=== PATIENT | male | born 1940 | race Caucasian/White ===

== ENCOUNTER 2017-06-08 21:42 | Emergency (ER) | payer OTHER ==
[2017-06-08 22:04] VITALS: RESP 16
--- NOTE | 2017-06-08 22:05 | EDPHY ---
H & P Stated Complaint: eye bleeding HPI/ROS: HPI CHIEF COMPLAINT: Left eye redness, anxiety HISTORY OF PRESENT ILLNESS: This patient very pleasant 77-year-old male, significant past medical history for hypertension ulcerative colitis. He presents emergency room stating that his relatives flew to the [place] in the been staying with him they noticed his eye was red 2 days ago. He did not have any symptoms. He became concerned that his eye was red and states that it was worse today. He denies any eye pain or visual disturbance. He states he became very anxious as he has to go on a long road trip and he is concerned that his left eye being red is going to interfere with his trip. Denies headache, chest pain, shortness of breath, fever. Denies eye pain. Denies vision double vision or blurry vision. Past Medical History: Hypertension, also colitis Past Surgical History: Denies recent surgery Social History: Denies daily use of drugs alcohol tobacco products. Family History: Noncontributory ROS REVIEW OF SYSTEMS: A comprehensive 10 point review of systems is otherwise negative aside from elements mentioned in the history of present illness. Exam Constitutional triage nursing summary reviewed, vital signs reviewed, awake/ alert. Eyes normal conjunctivae and sclera, EOMI, PERRLA. Right eye normal. Left eye on the medial aspect of the left eye at the 7 to 9:00 O'Clock position there is subconjunctival hemorrhage present. There is some yellow hue indicating that the blood is starting to break down. Globes are soft. Extraocular movement intact. No proptosis. Pupil equal round react to light. Posterior eye exam without dilatation is unremarkable. No hyphema. Visual acuity is been reviewed. Isrrael-Pen pressures have been performed. Fluorescein was used. No uptake. Isrrael-Pen pressure show 13, 13, 14. HENT normal inspection, atraumatic, moist mucus membranes, no epistaxis, neck supple/ no meningismus, no raccoon eyes. Respiratory clear to auscultation bilaterally, normal breath sounds, no respiratory distress, no wheezing. Cardiovascular rate normal, regular rhythm, no murmur, no edema, distal pulses normal. Gastrointestinal soft, non-tender, no rebound, no guarding, normal bowel sounds, no distension, no pulsatile mass. Genitourinary no CVA tenderness. Musculoskeletal no midline vertebral tenderness, full range of motion, no calf swelling, no tenderness of extremities, no meningismus, good pulses, neurovascularly intact. Skin pink, warm, & dry, no rash, skin atraumatic. Neurologic awake, alert and oriented x 3, AAOx3, moves all 4 extremities equally, motor intact, sensory intact, CN II-XII intact, normal cerebellar, normal vision, normal speech. Psychiatric normal mood/affect. Heme/Lymph/Immune no lymphadenopathy. Differential Diagnosis: Includes but is not limited to in a particular order left eye subconjunctival hemorrhage, hyphema, traumatic iritis, acute angle closure glaucoma Medical Decision Making: Plan for this patient visual acuity, Isrrael-Pen for pressures, fluorescein. Proparacaine. Re-evaluate. Re-evaluation: 2308: Re-evaluation at this time. Patient resting comfortably. He does tell me feels anxious about his blood pressure. I encouraged him to get a blood pressure cuff. Additionally tract his blood pressure twice a day 9:00 a.m. 9: 00 p.m.. Keep a log. Trend his blood pressure he continues to have high blood pressure her recommend adjusting his blood pressure medication with his primary care doctor. He does not have any chest pain or headache here. Denies numbness or tingling or focal weakness. His left eye shows a subconjunctival hemorrhage it is possible from hypertension. No significant eye pain, pressure , normal. Source: Patient - Personal History Current Tetanus/Diphtheria Vaccine: No Current Tetanus Diphtheria and Acellular Pertussis (TDAP): No - Medical/Surgical History Hx Asthma: No Hx Chronic Respiratory Disease: No Hx Diabetes: No Hx Cardiac Disease: No Hx Renal Disease: No Hx Cirrhosis: No Hx Alcoholism: No Hx HIV/AIDS: No Hx Splenectomy or Spleen Trauma: No Other PMH: HTN, UC, - Social History Smoking Status: Never smoked Constitutional: Initial Vital Signs Temperature (C) 36.6 C 06/08/17 21:59 Heart Rate 74 06/08/17 21:59 Respiratory Rate 16 06/08/17 21:59 Blood Pressure 175/105 H 06/08/17 21:59 O2 Sat (%) 96 06/08/17 21:59 O2 Delivery Mode Room Air Allergies/Adverse Reactions: No Known Allergies Allergy (Unverified 06/08/17 21:58) Home Medications: Medication Instructions Recorded Blood Pressure Med 06/08/17 Departure - Departure Disposition: Home, Routine, Self-Care Clinical Impression: Subconjunctival hemorrhage of left eye Condition: Good Instructions: Subconjunctival Hemorrhage (ED), Hypertension (ED) Additional Instructions: 1.Do not rub your eye. 2. This should gradually improve over the next 2 weeks. Your body will reabsorbed the blood. 3. If you find getting worse or you have severe eye pain or you have a visual disturbance please see Ophthalmology. 4. Please keep a close eye on her blood pressure. Check a twice a day keep a log. Trend your blood pressure. Referrals: NONE *PRIMARY CARE P,. [Primary Care Provider] - As per Instructions Emelina Barreto MD [Non Staff Provider (MD)] - As per Instructions
[2017-06-08] MEDS ORDERED: PROPARACAINE 0.5% 15 ML OPHT DROP ONE (22:13)
[2017-06-08] MEDS ORDERED: FLUORESCEIN SODIUM 1 MG STRIP OP ONE (22:16)
[2017-06-08 22:51] VITALS: PULSE 68; O2SAT 95
[2017-06-08 23:18] VITALS: BP 154/94; TEMP 98.6
== END 2017-06-08 23:18 | disposition home or self-care (01) ==
DX: H11.32 Conjunctival hemorrhage, left eye (principal); I10 Essential (primary) hypertension

== ENCOUNTER 2017-06-19 11:39 | Emergency (ER) | payer OTHER ==
--- NOTE | 2017-06-19 11:46 | EDPHY ---
H & P Time Seen by Provider: 06/19/17 11:41 HPI/ROS: CHIEF COMPLAINT: Hypertension HISTORY OF PRESENT ILLNESS: The patient presents to the ED for evaluation of labile hypertension. The patient is on a dual agent antihypertensive which includes valsartan 80 mg daily and 12.5 mg of hydrochlorothiazide. The patient has had systolic blood pressures in the 170-180 range episodically over the past several days. The patient denies any complaints of acute headache, chest pain, numbness or weakness. The patient is visiting from [facility] and does not have a primary care provider. REVIEW OF SYSTEMS: A comprehensive 10 point review of systems is otherwise negative aside from elements mentioned in the history of present illness. Source: Patient Exam Limitations: No limitations - Medical/Surgical History Hx Asthma: No Hx Chronic Respiratory Disease: No Hx Diabetes: No Hx Cardiac Disease: No Hx Renal Disease: No Hx Cirrhosis: No Hx Alcoholism: No Hx HIV/AIDS: No Hx Splenectomy or Spleen Trauma: No Other PMH: HTN, UC, - Social History Smoking Status: Never smoked - Physical Exam Exam: General Appearance: Alert, no distress Eyes: Pupils equal and round no pallor or injection ENT, Mouth: Mucous membranes moist Respiratory: There are no retractions, lungs are clear to auscultation Cardiovascular: Regular rate and rhythm Gastrointestinal: Abdomen is soft and nontender, no masses, bowel sounds normal Neurological: A&O, normal motor function, normal sensory exam, normal cranial nerves Skin: Warm and dry, no rashes Musculoskeletal: Neck is supple nontender Extremities: symmetrical, full range of motion Constitutional: Initial Vital Signs Temperature (C) 36.7 C 06/19/17 11:44 Heart Rate 78 06/19/17 11:44 Respiratory Rate 18 06/19/17 11:44 Blood Pressure 148/81 H 06/19/17 11:44 O2 Sat (%) 98 06/19/17 11:44 O2 Delivery Mode Room Air Allergies/Adverse Reactions: No Known Allergies Allergy (Verified 06/19/17 11:41) Home Medications: Medication Instructions Recorded Pentasa 250 mg (*) 06/19/17 Valsartan-Hctz 160-12.5 mg Tab 06/19/17 Medical Decision Making ED Course/Re-evaluation: Patient presents to the ED with labile blood pressures. He had his blood pressure monitor throughout his stay in the emergency department. Is currently 134/70. The patient has no evidence of a hypertensive urgency. At this point time I do feel the patient can be discharged home and follow up with our on- call primary care provider Dr. Antonina Rios for a blood pressure recheck within the week. The patient does understand return to the ED for markedly elevated blood pressure, chest pain, shortness of breath or other concerns. The patient is noted to have normal renal function in the emergency department. Differential Diagnosis: Differential diagnosis considered includes hypertensive emergency, hypertensive urgency, renal failure, primary hypertension - Data Points Laboratory Results: Laboratory Results 06/19/17 12:00 06/19/17 06/19/17 12:30 12:00 Sodium 143 mEq/L mEq/L (134-144) Potassium 3.8 mEq/L mEq/L (3.5-5.2) Chloride 106 mEq/L mEq/L (97-110) Carbon Dioxide 22 mEq/l mEq/l (22-31) Anion Gap 15 mEq/L mEq/L (8-16) BUN 22 mg/dL mg/dL (7-23) Creatinine 1.0 mg/dL mg/dL (0.7-1.3) Estimated GFR > 60 Glucose 127 mg/dL H mg/dL (70-100) Calcium 9.6 mg/dL mg/dL (8.5-10.4) Urine Color YELLOW Urine Appearance CLEAR Urine pH 5.0 (5.0-7.5) Ur Specific [place] 1.020 (1.002-1.030) Urine Protein NEGATIVE (NEGATIVE) Urine Ketones NEGATIVE (NEGATIVE) Urine Blood NEGATIVE (NEGATIVE) Urine Nitrate NEGATIVE (NEGATIVE) Urine Bilirubin NEGATIVE (NEGATIVE) Urine Urobilinogen NEGATIVE EU EU (0.2-1.0) Ur Leukocyte Esterase NEGATIVE (NEGATIVE) Urine Glucose NEGATIVE (NEGATIVE) Departure - Departure Disposition: Home, Routine, Self-Care Clinical Impression: Hypertension Condition: Good Instructions: Hypertension (ED) Additional Instructions: 1. Please follow up with the on-call primary care provider you have been referred to for a blood pressure recheck within the next week. When you contact their office be sure to tell them that you will referred from the emergency department for a visit with the on-call unassigned primary care provider. 2. Return to the ED for markedly elevated blood pressure, difficulty breathing, severe headache, numbness, weakness or other concerns. Referrals: Antonina Rios MD [Medical Doctor] - As per Instructions
[2017-06-19 11:47] VITALS: TEMP 98.1
[2017-06-19 12:33] LABS: ANION GAP 15 mEq/L (8-16); CALCIUM 9.6 mg/dL (8.5-10.4); CARBON DIOXIDE 22 mEq/l (22-31); CHLORIDE 106 mEq/L (97-110); GLOMERULAR FILTRATION RATE > 60; GLUCOSE 127 mg/dL (70-100); POTASSIUM 3.8 mEq/L (3.5-5.2); SODIUM 143 mEq/L (134-144)
[2017-06-19 12:44] LABS: COLOR YELLOW; LEUKOCYTE ESTERASE,URINE NEGATIVE (NEGATIVE); NITRITE,URINE NEGATIVE (NEGATIVE)
[2017-06-19 13:36] VITALS: BP 144/89; PULSE 67; RESP 16; O2SAT 97
== END 2017-06-19 13:33 | disposition home or self-care (01) ==
DX: I10 Essential (primary) hypertension (principal)